=== PATIENT | male | born 1970 | race Caucasian/White ===

== ENCOUNTER 2017-01-04 00:37 | Observation (INO) | payer OTHER ==
[2017-01-04] MEDS ORDERED: Sodium Chloride 0.9% 10 ML Syringe FLUSH PRN (01:05)
[2017-01-04] MEDS ORDERED: Ondansetron 4 MG/2 ML SDV IVPUSH ONE (01:05)
[2017-01-04] MEDS ORDERED: Ketorolac 30 MG/ML SDV IVPUSH ONE (01:09)
[2017-01-04 01:18] LABS: CHLORIDE,CL 102 mmol/L (98-107); SODIUM,NA 138 mmol/L (136-145)
[2017-01-04] MEDS ORDERED: Tamsulosin 0.4 MG Cap.ER PO ONE (01:26)
[2017-01-04] MEDS ORDERED: Sodium Chloride 0.9% 1,000 ML IV ONE ×3 (01:28→03:03)
[2017-01-04] MEDS ORDERED: Morphine 2 MG/ML Syringe IVPUSH ONE (01:29)
--- NOTE | 2017-01-04 02:41 | EDM.PDOC ---
ED HPI GENERAL MEDICAL PROBLEM - General Chief Complaint: Back Pain or Injury Stated Complaint: back pain Time Seen by Provider: 01/04/17 01:07 Source of Information: Reports: Patient History Limitations: Reports: No Limitations - History of Present Illness INITIAL COMMENTS - FREE TEXT/NARRATIVE: Sudden left lower abdominal pain that developed this past evening. No history of similar pain. Pain then radiated towards left flank. Developed nausea and emesis. No injury. No fevers/chills. No HEENT/Resp/CV complaints. No bowel changes. No other pain. Denies history of kidney stones. Pain improved a bit after urinating. Onset: Sudden - Related Data Allergies Allergy/AdvReac Type Severity Reaction Status Date / Time Sulfa (Sulfonamide Allergy Rash Verified 01/04/17 01:06 Antibiotics) Past Medical History - Past Surgical History Musculoskeletal Surgical History: Reports: Other (See Below) (bilateral knee surgery) Social & Family History - Tobacco Use Smoking Status *Q: Never Smoker - Alcohol Use Alcohol Use History: Yes Total Drinks Per Week Comment: intermittent social use of ETOH ED ROS GENERAL - Review of Systems Review Of Systems: See Below Constitutional: Reports: No Symptoms HEENT: Reports: No Symptoms Respiratory: Reports: No Symptoms Cardiovascular: Reports: No Symptoms GI/Abdominal: Reports: Abdominal Pain, Nausea, Vomiting. Denies: Black Stool, Bloody Stool, Constipation, Diarrhea, Distension, Hematemesis, Hematochezia : Reports: No Symptoms. Denies: Hematuria, Pain, Urgency, Urinary Retention Musculoskeletal: Reports: No Symptoms Skin: Reports: No Symptoms Neurological: Reports: No Symptoms Psychiatric: Reports: No Symptoms Hematologic/Lymphatic: Reports: No Symptoms ED EXAM,LOWER BACK PAIN/INJURY - Physical Exam Exam: See Below Exam Limited By: No Limitations General Appearance: Alert, WD/WN, Mild Distress Eye Exam: Bilateral Eye: EOMI, PERRL Ears: Normal External Exam Nose: Normal Inspection Throat/Mouth: Normal Inspection, Normal Lips, Normal Voice, No Airway Compromise Head: Atraumatic, Normocephalic Neck: Normal Inspection, Supple, Non-Tender, Full Range of Motion Respiratory/Chest: No Respiratory Distress, Lungs Clear, Normal Breath Sounds, No Accessory Muscle Use, Chest Non-Tender Cardiovascular: Normal Peripheral Pulses, Regular Rate, Rhythm, No Edema, No Murmur GI/Abdominal: Normal Bowel Sounds, Soft, No Distention, Other (some tenderness left mid abdomen. ). No: Guarding, Rigid, Rebound (Male) Exam: No Hernia. No: Scrotal Swelling, Scrotum Tenderness (L), Scrotum Tenderness (R), Testicular Mass, Testicular Tenderness (L), Testicular Tenderness (R), Urethral Discharge Back Exam: CVA Tenderness (L) Extremities: Normal Inspection, Non-Tender, No Pedal Edema Neurological: Alert, Normal Mood/Affect, No Motor/Sensory Deficits, Oriented x 3 Psychiatric: Normal Affect, Normal Mood Skin Exam: Warm, Dry, Intact, Normal Color Course - Vital Signs Last Recorded V/S: Last Vital Signs Temp 36.5 C 01/04/17 00:40 Pulse 82 01/04/17 00:40 Resp 18 01/04/17 00:40 BP 158/99 H 01/04/17 00:40 Pulse Ox 100 01/04/17 00:40 - Orders/Labs/Meds Orders: Active Orders 24 hr Category Date Time Status Abdomen wo Cont [CT] Stat Exams 01/04/17 01:03 Ordered CBC WITH AUTO DIFF [HEME] Stat Lab 01/04/17 01:00 Received CMP [COMPREHENSIVE METABOLIC PN,CMP] [CHEM] Stat Lab 01/04/17 01:02 Ordered UA W/MICROSCOPIC [URIN] Stat Lab 01/04/17 01:01 Uncollected Sodium Chloride 0.9% [Saline Flush] Med 01/04/17 01:05 Active 10 ml FLUSH ASDIRECTED PRN Saline Lock Insert [OM.PC] Routine Oth 01/04/17 01:05 Ordered Medication Orders Sodium Chloride (Saline Flush) 10 ml FLUSH ASDIRECTED PRN PRN Reason: Keep Vein Open Labs: Laboratory Tests 01/04/17 Range/Units 01:00 WBC 9.1 (4.0-10.2) K/uL RBC 4.78 (4.33-5.41) M/uL Hgb 15.0 (13.1-16.8) g/dL Hct 41.9 (39.0-49.0) % MCV 87.7 (84.0-98.0) fL MCH 31.4 (28.2-33.3) pg MCHC 35.8 (31.7-36.0) g/dL RDW 13.2 (11.2-14.1) % Plt Count 218 (150-350) K/uL Neut % (Auto) 52.6 (45.0-80.0) % Lymph % (Auto) 33.3 (10.0-50.0) % Woodward % (Auto) 11.0 (2.0-14.0) % Eos % (Auto) 2.7 (0.0-5.0) % Baso % (Auto) 0.4 (0.0-2.0) % Neut # (Auto) 4.80 (1.40-7.00) K/uL Lymph # (Auto) 3.04 (0.50-3.50) K/uL Woodward # (Auto) 1.00 (0.00-1.00) K/uL Eos # (Auto) 0.25 (0.00-0.50) K/uL Baso # (Auto) 0.04 (0.00-0.20) K/uL Meds: Medications Generic Name Dose Route Start Last Admin Trade Name Freq PRN Reason Stop Dose Admin Sodium Chloride 10 ml 01/04/17 01:05 Saline Flush FLUSH ASDIRECTED PRN Keep Vein Open Discontinued Medications Generic Name Dose Route Start Last Admin Trade Name Freq PRN Reason Stop Dose Admin Ondansetron HCl 4 mg 01/04/17 01:05 Zofran IVPUSH 01/04/17 01:06 ONETIME ONE - Radiology Interpretation CT Results Date: 01/04/17 CT Results Time: 02:05 (Stone, approx 6mm, noted on left, proximal ureter) - Re-Assessments/Exams Free Text/Narrative Re-Assessment/Exam: 01/04/17 02:49 Symptoms improved with medication and IV fluids. Admitted observation for pain/ nausea control as well as continued IV fluids. Hematuria noted. Elevated total bili 1.6, elevated blood sugar noted. Departure - Departure Time of Disposition: 02:30 Disposition: Refer to Observation Condition: Good Clinical Impression: Kidney stone on left side, Elevated blood sugar, Total bilirubin, elevated - Discharge Information Forms: ED Department Discharge - Problem List & Annotations (1) Kidney stone on left side SNOMED Code(s): 45431384 Code(s): N20.0 - CALCULUS OF KIDNEY Status: Acute Priority: High Current Visit: Yes Onset Date: ~06/28/17 (2) Elevated blood sugar SNOMED Code(s): 69434115 Code(s): R73.9 - HYPERGLYCEMIA, UNSPECIFIED Status: Acute Priority: High Current Visit: Yes Onset Date: Unknown (3) Total bilirubin, elevated SNOMED Code(s): 270759815732665 Code(s): R17 - UNSPECIFIED JAUNDICE Status: Acute Priority: Low Current Visit: Yes - Problem List Review Problem List Initiated/Reviewed/Updated: Yes - My Orders Last 24 Hours: My Active Orders 01/04/17 01:00 CBC WITH AUTO DIFF [HEME] Stat 01/04/17 01:01 UA W/MICROSCOPIC [URIN] Stat 01/04/17 01:02 CMP [COMPREHENSIVE METABOLIC PN,CMP] [CHEM] Stat 01/04/17 01:03 Abdomen wo Cont [CT] Stat 01/04/17 01:05 Sodium Chloride 0.9% [Saline Flush] 10 ml FLUSH ASDIRECTED PRN Saline Lock Insert [OM.PC] Routine - Assessment/Plan Admission H&P: Please use this note as an admission H&P Last 24 Hours: My Active Orders 01/04/17 01:00 CBC WITH AUTO DIFF [HEME] Stat 01/04/17 01:01 UA W/MICROSCOPIC [URIN] Stat 01/04/17 01:02 CMP [COMPREHENSIVE METABOLIC PN,CMP] [CHEM] Stat 01/04/17 01:03 Abdomen wo Cont [CT] Stat 01/04/17 01:05 Sodium Chloride 0.9% [Saline Flush] 10 ml FLUSH ASDIRECTED PRN Saline Lock Insert [OM.PC] Routine Assessment:: Acute nephrolithiasis in patient also noted to have mild elevation of total bili as well as elevated blood sugar. Plan: Pain and nausea control. IV fluids.
[2017-01-04] MEDS ORDERED: Acetaminophen 325 MG Tab PO PRN (02:56)
[2017-01-04] MEDS ORDERED: Ketorolac 30 MG/ML SDV IVPUSH PRN (03:01)
[2017-01-04] MEDS: Morphine 2 MG/ML Syringe IVPUSH PRN ×8 (03:26→21:04)
[2017-01-04] MEDS: Sodium Chloride 0.9% 1,000 ML IV SCH ×3 (07:28→21:06)
[2017-01-04] MEDS: Famotidine 20 MG/2 ML SDV IVPUSH SCH ×2 (09:28→17:55)
[2017-01-04] MEDS: Ondansetron 4 MG/2 ML SDV IVPUSH PRN ×2 (10:00→21:05)
[2017-01-04] MEDS: Ketorolac 15 MG/ML SDV IVPUSH PRN (21:01)
[2017-01-05] MEDS: Tamsulosin 0.4 MG Cap.ER PO SCH ×2 (01:11→07:25)
[2017-01-05] MEDS: Sodium Chloride 0.9% 1,000 ML IV SCH ×2 (03:47→09:39)
[2017-01-05] MEDS: Famotidine 20 MG/2 ML SDV IVPUSH SCH (07:25)
[2017-01-05] MEDS: Ketorolac 15 MG/ML SDV IVPUSH PRN (07:25)
[2017-01-05 08:08] LABS: CHLORIDE,CL 109 mmol/L (98-107); SODIUM,NA 141 mmol/L (136-145)
[2017-01-05 11:54] VITALS: BP 121/70
[2017-01-05] MEDS: Ondansetron 4 MG/2 ML SDV IVPUSH PRN (12:59)
[2017-01-05] MEDS: Morphine 2 MG/ML Syringe IVPUSH PRN (13:00)
--- NOTE | 2017-01-05 14:05 | PCM.DCSUM1 ---
Discharge Summary - Discharge Data Discharge Date: 01/05/17 Discharge Disposition: DC/Tfer to Acute Hospital 02 Condition: Good - Discharge Diagnosis/Problem(s) (1) Kidney stone on left side SNOMED Code(s): 21194164 ICD Code: N20.0 - CALCULUS OF KIDNEY Status: Acute Priority: High Current Visit: Yes Onset Date: ~01/03/17 Problem Details: 6.9mm stone proximal left ureter with additional stones noted within both kidneys. (2) Elevated blood sugar SNOMED Code(s): 63978164 ICD Code: R73.9 - HYPERGLYCEMIA, UNSPECIFIED Status: Acute Priority: High Current Visit: Yes Onset Date: Unknown Problem Details: Hgb A1C 6.0 (3) Total bilirubin, elevated SNOMED Code(s): 039537746446120 ICD Code: R17 - UNSPECIFIED JAUNDICE Status: Acute Priority: Low Current Visit: Yes Problem Details: Total bili 1.7 [address] liver noted on CT. - Patient Summary/Data Complications: none Hospital Course: Patient required intermittent pain medication to help relieve discomfort from kidney stone. Call placed to Urology at [facility] at 1300 today. from Urology offered to have patient go to [facility] today for stent placement and said that patient has approximately 50/50 chance of passing stone on own without intervention. Discussed situation with patient and he was given option to try home management with oral pain/nausea medications versus going up today for the stent. Patient elected to have stenting performed. Will be discharged from our facility and driven by private vehicle to [facility] by his . Placed NPO. - Patient Instructions Other/Special Instructions: Do not eat or drink anything prior to arriving to [facility]. from Urology is expecting you. - Discharge Plan Forms: ED Department Discharge Referrals: PCP,None [Primary Care Provider] - - Discharge Summary/Plan Comment DC Time >30 min.: No Discharge Summary/Plan Comment: Patient will be saline locked. NPO. To drive directly to [facility] in [place] where he will be treated by from Urology department. - Patient Data Vitals - Most Recent: Last Vital Signs Temp 36.5 C 01/05/17 11:52 Pulse 62 01/05/17 11:52 Resp 16 01/05/17 11:52 BP 121/70 01/05/17 11:52 Pulse Ox 99 01/05/17 11:52 Weight - Most Recent: 109.815 kg I&O - Last 24 hours: Intake & Output 01/04/17 01/05/17 01/05/17 22:59 06:59 14:59 Intake Total 3210 2010 900 Output Total 1025 1100 1500 Balance 2185 910 -600 Lab Results - Last 24 hrs: Laboratory Results - last 24 hr 01/04/17 01/04/17 01/05/17 Range/Units 16:28 21:18 07:10 WBC 6.6 (4.0-10.2) K/uL RBC 4.07 L (4.33-5.41) M/uL Hgb 12.8 L D (13.1-16.8) g/dL Hct 36.4 L (39.0-49.0) % MCV 89.4 (84.0-98.0) fL MCH 31.4 (28.2-33.3) pg MCHC 35.2 (31.7-36.0) g/dL RDW 13.1 (11.2-14.1) % Plt Count 155 (150-350) K/uL Neut % (Auto) 53.2 (45.0-80.0) % Lymph % (Auto) 31.7 (10.0-50.0) % Edmunds % (Auto) 11.0 (2.0-14.0) % Eos % (Auto) 3.6 (0.0-5.0) % Baso % (Auto) 0.5 (0.0-2.0) % Neut # (Auto) 3.53 (1.40-7.00) K/uL Lymph # (Auto) 2.10 (0.50-3.50) K/uL Edmunds # (Auto) 0.73 (0.00-1.00) K/uL Eos # (Auto) 0.24 (0.00-0.50) K/uL Baso # (Auto) 0.03 (0.00-0.20) K/uL Sodium (136-145) mmol/L Potassium (3.5-5.1) mmol/L Chloride (98-107) mmol/L Carbon Dioxide (21.0-32.0) mmol/L BUN (7-18) mg/dL Creatinine (0.51-1.17) mg/dL Est Cr Clr Drug Dosing mL/min Estimated GFR (MDRD) mL/min Glucose (74-106) mg/dL POC Glucose 93 74 (65-110) mg/dl Calcium (8.5-10.1) mg/dL Total Bilirubin (0.2-1.0) mg/dL AST (15-37) U/L ALT (12-78) U/L Alkaline Phosphatase (46-116) IU/L Total Protein (6.4-8.2) g/dL Albumin (3.4-5.0) g/dL 01/05/17 01/05/17 01/05/17 Range/Units 07:10 07:10 11:10 WBC (4.0-10.2) K/uL RBC (4.33-5.41) M/uL Hgb (13.1-16.8) g/dL Hct (39.0-49.0) % MCV (84.0-98.0) fL MCH (28.2-33.3) pg MCHC (31.7-36.0) g/dL RDW (11.2-14.1) % Plt Count (150-350) K/uL Neut % (Auto) (45.0-80.0) % Lymph % (Auto) (10.0-50.0) % Edmunds % (Auto) (2.0-14.0) % Eos % (Auto) (0.0-5.0) % Baso % (Auto) (0.0-2.0) % Neut # (Auto) (1.40-7.00) K/uL Lymph # (Auto) (0.50-3.50) K/uL Edmunds # (Auto) (0.00-1.00) K/uL Eos # (Auto) (0.00-0.50) K/uL Baso # (Auto) (0.00-0.20) K/uL Sodium 141 (136-145) mmol/L Potassium 3.9 (3.5-5.1) mmol/L Chloride 109 H (98-107) mmol/L Carbon Dioxide 27.5 (21.0-32.0) mmol/L BUN 10 (7-18) mg/dL Creatinine 0.87 (0.51-1.17) mg/dL Est Cr Clr Drug Dosing 118.06 mL/min Estimated GFR (MDRD) > 60 mL/min Glucose 110 H (74-106) mg/dL POC Glucose 100 71 (65-110) mg/dl Calcium 8.2 L (8.5-10.1) mg/dL Total Bilirubin 1.7 H (0.2-1.0) mg/dL AST 22 (15-37) U/L ALT 37 (12-78) U/L Alkaline Phosphatase 68 (46-116) IU/L Total Protein 5.8 L (6.4-8.2) g/dL Albumin 3.1 L (3.4-5.0) g/dL Med Orders - Current: Current Medications Acetaminophen (Tylenol) 650 mg PO Q4H PRN PRN Reason: analgesia/fever Famotidine (Pepcid) 20 mg IVPUSH BID [facility] Last Admin: 01/05/17 07:25 Dose: 20 mg Sodium Chloride (Normal Saline) 1,000 mls @ 150 mls/hr IV ASDIRECTED [facility] Last Admin: 01/05/17 09:39 Dose: 150 mls/hr Morphine Sulfate (Morphine) 2 mg IVPUSH Q1H PRN PRN Reason: Pain (severe 7-10) Last Admin: 01/05/17 13:00 Dose: 2 mg Ondansetron HCl (Zofran) 4 mg IVPUSH Q6H PRN PRN Reason: Nausea/Vomiting Last Admin: 01/05/17 12:59 Dose: 4 mg Sodium Chloride (Saline Flush) 10 ml FLUSH ASDIRECTED PRN PRN Reason: Keep Vein Open Last Admin: 01/04/17 01:39 Dose: 10 ml Tamsulosin HCl (Flomax) 0.4 mg PO DAILY [facility] Last Admin: 01/05/17 07:25 Dose: 0.4 mg Discontinued Medications Sodium Chloride (Normal Saline) 1,000 mls @ 999 mls/hr IV .BOLUS ONE Stop: 01/04/17 02:28 Last Admin: 01/04/17 01:34 Dose: 999 mls/hr Sodium Chloride (Normal Saline) 1,000 mls @ 250 mls/hr IV .BOLUS ONE Stop: 01/04/17 06:58 Last Admin: 01/04/17 05:02 Dose: Not Given Sodium Chloride (Normal Saline) 1,000 mls @ 250 mls/hr IV .BOLUS ONE Stop: 01/04/17 06:59 Last Admin: 01/04/17 03:26 Dose: 250 mls/hr Ketorolac Tromethamine (Toradol) 30 mg IVPUSH ONETIME ONE Stop: 01/04/17 01:10 Last Admin: 01/04/17 01:40 Dose: Not Given Ketorolac Tromethamine (Toradol) 30 mg IVPUSH Q6H PRN PRN Reason: Pain (moderate 4-6) Stop: 01/09/17 03:01 Last Admin: 01/04/17 06:14 Dose: 30 mg Ketorolac Tromethamine (Toradol) 15 mg IVPUSH Q6H PRN PRN Reason: Pain (moderate 4-6) Stop: 01/05/17 09:01 Last Admin: 01/05/17 07:25 Dose: 15 mg Morphine Sulfate (Morphine) 2 mg IVPUSH ONETIME ONE Stop: 01/04/17 01:30 Last Admin: 01/04/17 01:36 Dose: 2 mg Ondansetron HCl (Zofran) 4 mg IVPUSH ONETIME ONE Stop: 01/04/17 01:06 Last Admin: 01/04/17 01:16 Dose: 4 mg Tamsulosin HCl (Flomax) 0.4 mg PO ONETIME ONE Stop: 01/04/17 01:27 Last Admin: 01/04/17 01:33 Dose: 0.4 mg *Q Meaningful Use (DIS) - VTE *Q VTE Criteria *Q: - Stroke *Q Stroke Criteria *Q: - AMI *Q AMI Criteria *Q:
== END 2017-01-05 15:00 ==
LOC: LL.ED 00:37 → LL.MS 02:30
PROVIDERS: ADMIT Emergency Medicine; ATTEND Family Medicine
DX: N20.0 Calculus of kidney (principal); R73.9 Hyperglycemia, unspecified; R17 Unspecified jaundice; Z88.2 Allergy status to sulfonamides
CPT/HCPCS: 36415; 74176; 80053; 81001; 82962; 83036; 85025; 96361; 96374; 96375; 99285; A9270; J1885; J2270; J2405; J7030; J7050; 96376; 99217; 99219; G0378; S0028

== ENCOUNTER 2023-09-26 22:04 | Emergency (ER) | payer OTHER ==
[2023-09-26] MEDS ORDERED: Sodium Chloride 0.9% 10 ML Syringe FLUSH PRN (22:21)
[2023-09-26 22:22] VITALS: BP 140/94; PULSE 109
[2023-09-26 22:28] LABS: BASOPHILS ABSOLUTE AUTO 0.02 K/uL (0.00-0.20); BASOPHILS PERCENT AUTO 0.2 % (0.0-2.0); EOSINOPHILS PERCENT AUTO 1.1 % (0.0-5.0); HEMATOCRIT 43.1 % (39.0-49.0); HEMOGLOBIN 15.3 g/dL (13.1-16.8); LYMPHOCYTES ABSOLUTE AUTO 0.59 K/uL (0.50-3.50); LYMPHOCYTES PERCENT AUTO 6.4 % (10.0-50.0); MEAN CORPUSCULAR HEMOGLOBIN 30.1 pg (28.2-33.3); MEAN CORPUSCULAR HGB CONC 35.5 g/dL (31.7-36.0); MEAN CORPUSCULAR VOLUME 84.8 fL (84.0-98.0); MONOCYTES ABSOLUTE AUTO 1.16 K/uL (0.00-1.00); MONOCYTES PERCENT AUTO 12.7 % (2.0-14.0); NEUTROPHILS ABSOLUTE AUTO 7.28 K/uL (1.40-7.00); NEUTROPHILS PERCENT AUTO 79.6 % (45.0-80.0); PLATELET COUNT,PLT 193 K/uL (150-350); RED BLOOD CELL COUNT 5.08 M/uL (4.33-5.41); RED CELL DISTRIBUTION WIDTH 13.5 % (11.2-14.1); WHITE BLOOD CELL COUNT,WBC 9.2 K/uL (4.0-10.2)
[2023-09-26] MEDS ORDERED: Ondansetron 4 MG/2 ML SDV IVPUSH ONE (22:37)
[2023-09-26] MEDS ORDERED: Promethazine 25 MG/ML SDV IM ONE (22:39)
[2023-09-26 22:41] LABS: ALANINE AMINOTRANSFERASE,ALT 34 U/L (12-78); ALBUMIN 4.2 g/dL (3.4-5.0); ALKALINE PHOSPHATASE 94 IU/L (46-116); ANION GAP 11.5 meq/L (7-15); ASPARTATE AMNIOTRANSFERASE,AST 25 U/L (15-37); BILIRUBIN TOTAL 2.4 mg/dL (0.2-1.0); BLOOD UREA NITROGEN,BUN 19 mg/dL (7-18); CALCIUM 9.2 mg/dL (8.5-10.1); CARBON DIOXIDE,CO2 24.5 mmol/L (21.0-32.0); CHLORIDE,CL 100 mmol/L (98-107); CREATININE 0.95 mg/dL (0.51-1.17); GLUCOSE RANDOM 177 mg/dL (70-99); POTASSIUM,K 4.1 mmol/L (3.5-5.1); PROTEIN TOTAL,TP 7.8 g/dL (6.4-8.2); SODIUM,NA 136 mmol/L (136-145)
[2023-09-26 22:42] LABS: ESTIMATED GFR 95 mL/min (>=60)
[2023-09-26] MEDS: Ondansetron 4 MG/2 ML SDV IVPUSH ONE (22:46)
[2023-09-26] MEDS: Sodium Chloride 0.9% 1,000 ML IV SCH (22:46)
[2023-09-26] MEDS: Ketorolac 15 MG/ML SDV IVPUSH ONE (22:47)
[2023-09-26 22:50] LABS: CORONAVIRUS COVID-19 NAA NEGATIVE (NEGATIVE); INFLUENZA A NAA NEGATIVE (NEGATIVE); INFLUENZA B NAA NEGATIVE (NEGATIVE); RESPIRATORY SYNCYTIAL VIR NAA NEGATIVE (NEGATIVE)
[2023-09-26] MEDS: Loperamide 2 MG Tab PO ONE (23:08)
[2023-09-27] MEDS: Take Home: Ondansetron 4 MG Tab.DIS, 5 Tab Pack PO ONE (00:04)
== END 2023-09-27 01:08 | disposition home or self-care (01) ==
LOC: LL.ED 22:04
DX: J98.8 Other specified respiratory disorders (principal); E86.0 Dehydration; R11.2 Nausea with vomiting, unspecified; R19.7 Diarrhea, unspecified; Z79.899 Other long term (current) drug therapy; Z88.2 Allergy status to sulfonamides
CPT/HCPCS: 0241U; 36415; 71046; 74018; 80053; 83690; 85025; 96361; 96374; 96375; 99284; 99284-25; A9270-GY; J1885; J2405; J7030; Q0162